=== PATIENT | female | born 1930 | race Caucasian/White ===

== ENCOUNTER 2017-04-18 11:10 | Emergency (ER) | payer MEDICARE, MEDICAID ==
[~2017-04-18] VITALS: Ht 152.4 cm; Wt 60.0 kg
[~2017-04-18 11:10] MED LIST: ACET-703 PO; AMLO5 PO; CINA30 PO; LORA-373 PO; METO-309 PO; NITR1SUB2 SL; PROT40TA PO; RAMI5CAP PO; RENATAB PO; SEVE800T PO
[2017-04-18 11:13] VITALS: BP 173/72; PULSE 66; RESP 16; TEMP 99.2; O2SAT 98
--- NOTE | 2017-04-18 11:19 | PD ---
HPI Chief Complaint: Skin Complaint Time Seen by Provider: 11:19 Travel History International Travel<30 days: No Contact w/Intl Traveler<30days: No History of Present Illness HPI 86-year-old female on dialysis presents to the emergency department status post skin tear 4 days ago to the right lateral augustine. Patient is here with her daughter stating that the area is becoming more tender and there is localized erythema but no warmth. There has been clear serous drainage. Has no fever, chills, or other symptoms. Patient had dialysis yesterday. Pain is 4 out of 10. Patient has multiple allergies please see list. PFSH Past Medical History Anemia: Yes Arthritis: Yes (osteo) Anxiety: Yes Cancer: Yes (SKIN CANCER RIGHT LOWER LEG, REMOVED) Cardiac Catheterization: Yes Cardiovascular Problems: Yes ([place], with triple bypass) High Cholesterol: Yes Chest Pain: Yes Congestive Heart Failure: Yes COPD: Yes Cerebrovascular Accident: No Coronary Artery Disease: Yes Diabetes: No Dialysis: Yes ( sat) Diverticulitis: Yes Endocrine: Yes Gastrointestinal Disorders: No Genitourinary: Yes Headaches: No Hypertension: Yes Implanted Vascular Access Dvce: No Musculoskeletal: No Neurologic: Yes Psychiatric: Yes Reproductive: No Respiratory: Yes Integumentary: Yes (NONSPECIFIC RASH) Migraines: No Renal Failure: Yes Seizures: No Sleep Apnea: Yes Thyroid Disease: Yes Menopausal: Yes Past Surgical History Abdominal Surgery: No Cardiac Surgery: Yes (triple bypass) Coronary Artery Bypass Graft: Yes (triple bypass) Ear Surgery: No Endocrine Surgery: No Eye Surgery: Yes (cataract removal, intraocular lense placement bilateral) Genitourinary Surgery: No Gynecologic Surgery: Yes (hysterectomy) Hysterectomy: Yes Neurologic Surgery: No Oral Surgery: No Thoracic Surgery: No Tonsillectomy: Yes Other Surgery: Yes (hysterectomy, fistula right upper arm for dialysis) Social History Alcohol Use: No Tobacco Use: No Substance Use: No Allergies-Medications (Allergen,Severity, Reaction): Coded Allergies: Sulfa (Sulfonamide Antibiotics) (Unverified Allergy, Unknown, 04/18/17) acetaminophen (Unverified Allergy, Unknown, 04/18/17) diatrizoate meglumine (Unverified Allergy, Unknown, 04/18/17) gadobenic acid (Unverified Allergy, Unknown, 04/18/17) gadodiamide (Unverified Allergy, Unknown, 04/18/17) gadoteridol (Unverified Allergy, Unknown, 04/18/17) iodixanol (Unverified Allergy, Unknown, 04/18/17) iohexol (Unverified Allergy, Unknown, 04/18/17) levofloxacin (Unverified Allergy, Unknown, 04/18/17) morphine (Unverified Allergy, Unknown, 04/18/17) oxycodone (Unverified Allergy, Unknown, 04/18/17) peanut (Unverified Allergy, Unknown, 04/18/17) penicillin G (Unverified Allergy, Unknown, 04/18/17) prochlorperazine (Unverified Allergy, Unknown, 04/18/17) shellfish derived (Unverified Allergy, Unknown, 04/18/17) vancomycin (Unverified Allergy, Unknown, 04/18/17) Reported Meds & Prescriptions Reported Meds & Active Scripts Active Mupirocin Topical (Mupirocin) 2 % Oint 1 Applic TOPICAL BID Clindamycin (Clindamycin HCl) 150 Mg Cap 150 Mg PO Q6H 10 Days Protonix (Pantoprazole Sodium) 40 Mg Tab 40 Mg PO DAILY Reported Lorazepam 0.5 Mg Tab 0.5 Mg PO TID Tylenol Extra Strength (Acetaminophen) 500 Mg Tab 1,000 Mg PO Q6HR PRN Nitroglycerin SL (Nitroglycerin) 0.3 Mg Subl 0.3 Mg SL DIRECTED PRN ONE TABLET UNDER THE TONGUE NEEDED FOR CHEST PAIN, MAY REPEAT EVERY FIVE MINUTES FOR A TOTAL OF 3 DOSES OR CALL 911 IF NO RELIEF Sensipar (Cinacalcet) 30 Mg Tab 30 Mg PO DAILY Renaplex-D (Multiple Vitamins W/ Minerals) 1 Tab Tab 1 Tab PO HS Renagel (Sevelamer HCl) 800 Mg Tab 800 Mg PO TID Ramipril 5 Mg Cap 5 Mg PO DAILY Norvasc (Amlodipine Besylate) 5 Mg Tab 10 Mg PO DAILY Lopressor (Metoprolol Tartrate) 50 Mg Tab 50 Mg PO BID PRN give if heart rate greater than 60 or higher Review of Systems Except as stated in HPI: all other systems reviewed are Neg General / Constitutional: No: Fever Eyes: No: Visual changes HENT: No: Headaches Cardiovascular: No: Chest Pain or Discomfort Respiratory: No: Shortness of Breath Gastrointestinal: No: Abdominal Pain Genitourinary: No: Dysuria Musculoskeletal: No: Pain Skin: No Rash Neurologic: No: Weakness Psychiatric: No: Depression Endocrine: No: Polydipsia Hematologic/Lymphatic: No: Easy Bruising Physical Exam Narrative GENERAL: Patient appears in no acute distress. SKIN: Warm and dry. Normal color. Normal turgor. She has a C-shaped skin tear to the lateral mid augustine localized tenderness. I believe the erythema is chronic rubor, as there is no warmth suggestive of active cellulitis. Serous drainage is noted and cultures are obtained. HEAD: Atraumatic. Normocephalic. EYES: Pupils equal and round. No scleral icterus. No injection or drainage. ENT: No nasal bleeding or discharge. Mucous membranes pink and moist. Pharynx is clear. NECK: Trachea midline. Supple and nontender. CARDIOVASCULAR: Regular rate and rhythm. RESPIRATORY: No accessory muscle use. Clear to auscultation. Breath sounds equal bilaterally. MUSCULOSKELETAL: Extremities without clubbing, cyanosis, or edema. No obvious deformities. NEUROLOGICAL: Awake and alert. No obvious cranial nerve deficits. Motor grossly within normal limits. Five out of 5 muscle strength in the arms and legs. Normal speech. PSYCHIATRIC: Appropriate mood and affect; insight and judgment normal. Data Data Last Documented VS Vital Signs Date Time Temp Pulse Resp B/P (MAP) Pulse Ox O2 Delivery O2 Flow Rate FiO2 04/18/17 11:13 99.2 66 16 173/72 (105) 98 Orders Orders Wound Culture And Gram Stain (04/18/17 11:37) [facility] Medical Decision Making Medical Screen Exam Complete: Yes Emergency Medical Condition: Yes Differential Diagnosis Skin tear. Renal failure on dialysis. Cellulitis Narrative Course Patient is medically stable at this time. Wound culture is obtained and sent for culture. Wound care is discussed with patient and daughter. Patient is given new percent ointment to be applied daily to the wound site with dressing change. Patient started on clindamycin 150 mg every 6 hours for 10 days. Wound should be cleansed and dressed daily as discussed. Patient follow-up with her primary care physician or return to emergency department as needed. Diagnosis Primary Impression: Skin tear of right lower leg without complication Qualified Codes: S81.811A - Laceration without foreign body, right lower leg, initial encounter Referrals: Primary Care Physician 1 week Patient Instructions: General Instructions, Skin Tear (ED) Additional Instructions: Wound culture is obtained and sent for culture. Wound care is discussed with patient and daughter. Patient is given new percent ointment to be applied daily to the wound site with dressing change. Patient started on clindamycin 150 mg every 6 hours for 10 days. Wound should be cleansed and dressed daily as discussed. Patient follow-up with her primary care physician or return to emergency department as needed. Med/Other Pt SpecificInfo: Prescription(s) given, Wound Care Scripts Mupirocin Topical (Mupirocin Topical) 2 % Oint 1 APPLIC TOPICAL BID for Mgmt Bacterial Infection, #22 GM 0 Refills Prov: Red Altman MD 04/18/17 Clindamycin (Clindamycin) 150 Mg Cap 150 MG PO Q6H for Infection for 10 Days, CAP 0 Refills Prov: Red Altman MD 04/18/17 Disposition: 01 DISCHARGE HOME Condition: Stable Catarino Gilman Apr 18, 2017 11:19
[2017-04-18] MEDS ORDERED: CLIN1CAP5 PO (11:33)
[2017-04-18] MEDS ORDERED: MUPI2OIN TOPICAL (11:33)
[2017-06-08] MEDS ORDERED: AMLO5TAB2 PO (10:07)
[2017-06-11] MEDS ORDERED: GENT0.1C TOPICAL (10:52)
== END 2017-04-18 12:13 | disposition home or self-care (01) ==
LOC: NEPD 11:10
DX: S81.811A Laceration without foreign body, right lower leg, initial encounter (principal); A49.01 Methicillin susceptible Staphylococcus aureus infection, unspecified site; B96.4 Proteus (mirabilis) (morganii) as the cause of diseases classified elsewhere; D64.9 Anemia, unspecified; I50.9 Heart failure, unspecified; J44.9 Chronic obstructive pulmonary disease, unspecified; I10 Essential (primary) hypertension; X58.XXXA Exposure to other specified factors, initial encounter; Z99.2 Dependence on renal dialysis
CPT/HCPCS: 86403; 87070; 87077; 87186; 87205; 99284

== ENCOUNTER 2017-04-21 17:36 | Emergency (ER) | payer MEDICARE, MEDICAID ==
[~2017-04-21] VITALS: Ht 160 cm; Wt 65.0 kg
[~2017-04-21 17:36] MED LIST changes: +CLIN1CAP5 PO; +MUPI2OIN TOPICAL
[2017-04-21 17:39] VITALS: BP 155/67; PULSE 70; RESP 15; TEMP 98.4; O2SAT 98
[2017-04-21] MEDS ORDERED: TETR250C PO (18:10)
--- NOTE | 2017-04-21 18:10 | PD ---
HPI . Positive wound culture Chief Complaint: Skin Problem Time Seen by Provider: 17:50 Travel History International Travel<30 days: No Contact w/Intl Traveler<30days: No History of Present Illness HPI This patient was seen here on April 18 because of a nonhealing skin tear on her right lateral lower leg. Patient culture was obtained and is growing MRSA. She was discharged on clindamycin and Bactroban but the MRSA is distant to clindamycin. She states that she received a phone call today instructed her to return to the emergency department for change in therapy. The patient reports continued pain in her right augustine dates that it's about the same now as it was at the time of her initial presentation. She is not running any fever. The patient admits that she has only changed her dressing once she was here on the . She was given a prescription for Bactroban to use twice a day. She has obviously not been doing that. PFSH Past Medical History Anemia: Yes Arthritis: Yes (osteo) Anxiety: Yes Cancer: Yes (SKIN CANCER RIGHT LOWER LEG, REMOVED) Cardiac Catheterization: Yes Cardiovascular Problems: Yes (TRIPLE BYPASS) High Cholesterol: Yes Chest Pain: Yes Congestive Heart Failure: Yes COPD: Yes Cerebrovascular Accident: No Coronary Artery Disease: Yes Diabetes: No Dialysis: Yes ( sun) Diverticulitis: Yes Endocrine: Yes Gastrointestinal Disorders: No Genitourinary: Yes Headaches: No Hypertension: Yes Implanted Vascular Access Dvce: No Musculoskeletal: No Neurologic: Yes Psychiatric: Yes Reproductive: No Respiratory: Yes Integumentary: Yes (NONSPECIFIC RASH) Migraines: No Renal Failure: Yes Seizures: No Sleep Apnea: Yes Thyroid Disease: Yes Menopausal: Yes Past Surgical History Abdominal Surgery: No Cardiac Surgery: Yes (triple bypass) Coronary Artery Bypass Graft: Yes (triple bypass) Ear Surgery: No Endocrine Surgery: No Eye Surgery: Yes (cataract removal, intraocular lense placement bilateral) Genitourinary Surgery: No Gynecologic Surgery: Yes (hysterectomy) Hysterectomy: Yes Neurologic Surgery: No Oral Surgery: No Thoracic Surgery: No Tonsillectomy: Yes Other Surgery: Yes (hysterectomy, fistula right upper arm for dialysis) Social History Alcohol Use: No Tobacco Use: No Substance Use: No Allergies-Medications (Allergen,Severity, Reaction): Coded Allergies: Sulfa (Sulfonamide Antibiotics) (Unverified Allergy, Unknown, 04/18/17) acetaminophen (Unverified Allergy, Unknown, 04/18/17) diatrizoate meglumine (Unverified Allergy, Unknown, 04/18/17) gadobenic acid (Unverified Allergy, Unknown, 04/18/17) gadodiamide (Unverified Allergy, Unknown, 04/18/17) gadoteridol (Unverified Allergy, Unknown, 04/18/17) iodixanol (Unverified Allergy, Unknown, 04/18/17) iohexol (Unverified Allergy, Unknown, 04/18/17) levofloxacin (Unverified Allergy, Unknown, 04/18/17) morphine (Unverified Allergy, Unknown, 04/18/17) oxycodone (Unverified Allergy, Unknown, 04/18/17) peanut (Unverified Allergy, Unknown, 04/18/17) penicillin G (Unverified Allergy, Unknown, 04/18/17) prochlorperazine (Unverified Allergy, Unknown, 04/18/17) shellfish derived (Unverified Allergy, Unknown, 04/18/17) vancomycin (Unverified Allergy, Unknown, 04/18/17) Reported Meds & Prescriptions Reported Meds & Active Scripts Active Mupirocin Topical (Mupirocin) 2 % Oint 1 Applic TOPICAL BID Clindamycin (Clindamycin HCl) 150 Mg Cap 150 Mg PO Q6H 10 Days Protonix (Pantoprazole Sodium) 40 Mg Tab 40 Mg PO DAILY Reported Lorazepam 0.5 Mg Tab 0.5 Mg PO TID Nitroglycerin SL (Nitroglycerin) 0.3 Mg Subl 0.3 Mg SL DIRECTED PRN ONE TABLET UNDER THE TONGUE NEEDED FOR CHEST PAIN, MAY REPEAT EVERY FIVE MINUTES FOR A TOTAL OF 3 DOSES OR CALL 911 IF NO RELIEF Sensipar (Cinacalcet) 30 Mg Tab 30 Mg PO DAILY Renagel (Sevelamer HCl) 800 Mg Tab 800 Mg PO TID Ramipril 5 Mg Cap 5 Mg PO DAILY Norvasc (Amlodipine Besylate) 5 Mg Tab 10 Mg PO DAILY Lopressor (Metoprolol Tartrate) 50 Mg Tab 50 Mg PO BID PRN give if heart rate greater than 60 or higher Review of Systems Except as stated in HPI: all other systems reviewed are Neg General / Constitutional: No: Fever, Chills Musculoskeletal: Positive: Pain Skin: Positive Change in Pigmentation Physical Exam Narrative GENERAL: Awake and alert and in no acute distress. SKIN: Warm and dry. There is an old appearing skin tear on the right lower extremity. It has some mild erythema and warmth of the right lower extremity. Minimal drainage from the wound. HEAD: Atraumatic. Normocephalic. EYES: Pupils equal and round. NECK: Trachea midline. CARDIOVASCULAR: Regular rate and rhythm. RESPIRATORY: No accessory muscle use. MUSCULOSKELETAL: No obvious deformities. No edema. NEUROLOGICAL: Awake and alert. No obvious cranial nerve deficits. Motor grossly within normal limits. Normal speech. PSYCHIATRIC: Appropriate mood and affect; insight and judgment normal. Data Data Last Documented VS Vital Signs Date Time Temp Pulse Resp B/P (MAP) Pulse Ox O2 Delivery O2 Flow Rate FiO2 04/21/17 17:51 16 04/21/17 17:39 98.4 70 155/67 (96) 98 Orders Orders Tetracycline (Sumycin) (04/21/17 18:15) [facility] Medical Decision Making Medical Screen Exam Complete: Yes Emergency Medical Condition: Yes Medical Record Reviewed: Yes (the wound culture shows MRSA which is sensitive to tetracycline.) Differential Diagnosis My differential diagnosis includes but is not limited to localized wound infection, cellulitis, abscess Narrative Course This is a renal failure patient who presents with cellulitis in her right lower extremity secondary to a skin tear. The wound culture was positive for MRSA which is not sensitive to clindamycin she is sensitive to tetracycline. I have queried up-to-date regarding the dose of tetracycline in a renal failure patient. It recommends decreasing the frequency of the antibiotics once a day. Diagnosis Primary Impression: Cellulitis Qualified Codes: L03.115 - Cellulitis of right lower limb Patient Instructions: Cellulitis (DC), General Instructions Additional Instructions: Clean the wound twice daily with soap and water. Apply a thin layer of Bactroban ointment after you wash it. Med/Other Pt SpecificInfo: Prescription(s) given Scripts Tetracycline (Tetracycline) 250 Mg Cap 500 MG PO DAILY for cellulitis for 10 Days, #10 CAP 0 Refills Prov: Yolande Wilhelm MD 04/21/17 Disposition: 01 DISCHARGE HOME Condition: Stable Yolande Wilhelm MD Apr 21, 2017 18:10
[2017-04-21] MEDS ORDERED: TETRACYCLINE HCL 500 MG CAP PO ONE (18:15)
[2017-04-21] MEDS ORDERED: TETRACYCLINE HCL 250 MG CAP PO ONE (18:15)
[2017-06-08] MEDS ORDERED: AMLO5TAB2 PO (10:07)
[2017-06-11] MEDS ORDERED: GENT0.1C TOPICAL (10:52)
== END 2017-04-21 18:32 | disposition home or self-care (01) ==
LOC: NEPE 17:36
DX: L03.115 Cellulitis of right lower limb (principal); B95.62 Methicillin resistant Staphylococcus aureus infection as the cause of diseases classified elsewhere
CPT/HCPCS: 99283

== ENCOUNTER 2017-05-15 18:38 | Emergency (ER) | payer MEDICARE, MEDICAID ==
[~2017-05-15] VITALS: Ht 160 cm; Wt 65.0 kg
[~2017-05-15 18:38] MED LIST changes: -ACET-703 PO; -RENATAB PO; +TETR250C PO
[2017-05-15 18:44] VITALS: BP 135/63; PULSE 71; RESP 24; TEMP 98; O2SAT 100
[2017-05-15] MEDS ORDERED: SODIUM CHLORIDE 0.9% FLUSH 10 ML FLUSH IVF PRN (19:00)
--- NOTE | 2017-05-15 19:04 | PD ---
HPI Chief Complaint: General Weakness Time Seen by Provider: 18:55 Travel History International Travel<30 days: No Contact w/Intl Traveler<30days: No Traveled to known affect area: No History of Present Illness HPI 86-year-old elderly female presents to the emergency department via EMS for evaluation of generalized weakness. The patient's past medical history of anemia, arthritis, anxiety, CABG in the past, CHF, CAD, diabetes, chronic renal failure, dialysis Sunday, , Sunday, hypertension, thyroid disease. Patient received her dialysis today. According to EMS, the dialysis center was not able take as much office he typically do. She apparently had some hypotension during the dialysis. She was going home with her daughter and was so weak that she was unable to get out of the car. The patient denies any syncope. She states she has a lump in her throat. No chest pain or shortness of breath. No abdominal pain. She states she was nauseated earlier, but no vomiting. Patient states that she feels weak all over. Patient states that she has felt weak after dialysis before, but this time is much worse. Return to EMS, her vitals have been stable on the way to the emergency department. She states she does not make any urine. Patient states she does not normally walk, but states this weakness is much worse. PFSH Past Medical History Anemia: Yes Arthritis: Yes (osteo) Anxiety: Yes Cancer: Yes (SKIN CANCER RIGHT LOWER LEG, REMOVED) Cardiac Catheterization: Yes Cardiovascular Problems: Yes (HTN) High Cholesterol: Yes Chest Pain: Yes Congestive Heart Failure: Yes COPD: Yes Cerebrovascular Accident: No Coronary Artery Disease: Yes Diabetes: No Dialysis: Yes (sun) Diverticulitis: Yes Endocrine: Yes Gastrointestinal Disorders: No Genitourinary: Yes Headaches: No Hypertension: Yes Implanted Vascular Access Dvce: No Musculoskeletal: No Neurologic: Yes Psychiatric: Yes Reproductive: No Respiratory: Yes Integumentary: Yes (NONSPECIFIC RASH) Migraines: No Renal Failure: Yes Seizures: No Sleep Apnea: Yes Thyroid Disease: Yes ?: Not Menopausal: Yes Past Surgical History Abdominal Surgery: No Cardiac Surgery: Yes (triple bypass) Coronary Artery Bypass Graft: Yes (triple bypass) Ear Surgery: No Endocrine Surgery: No Eye Surgery: Yes (cataract removal, intraocular lense placement bilateral) Genitourinary Surgery: No Gynecologic Surgery: Yes (hysterectomy) Hysterectomy: Yes Neurologic Surgery: No Oral Surgery: No Thoracic Surgery: No Tonsillectomy: Yes Other Surgery: Yes (hysterectomy, fistula right upper arm for dialysis) Social History Alcohol Use: No Tobacco Use: No Substance Use: No Allergies-Medications (Allergen,Severity, Reaction): Coded Allergies: Sulfa (Sulfonamide Antibiotics) (Unverified Allergy, Unknown, 05/15/17) acetaminophen (Unverified Allergy, Unknown, 05/15/17) diatrizoate meglumine (Unverified Allergy, Unknown, 05/15/17) gadobenic acid (Unverified Allergy, Unknown, 05/15/17) gadodiamide (Unverified Allergy, Unknown, 05/15/17) gadoteridol (Unverified Allergy, Unknown, 05/15/17) iodixanol (Unverified Allergy, Unknown, 05/15/17) iohexol (Unverified Allergy, Unknown, 05/15/17) levofloxacin (Unverified Allergy, Unknown, 05/15/17) morphine (Unverified Allergy, Unknown, 05/15/17) oxycodone (Unverified Allergy, Unknown, 05/15/17) peanut (Unverified Allergy, Unknown, 05/15/17) penicillin G (Unverified Allergy, Unknown, 05/15/17) prochlorperazine (Unverified Allergy, Unknown, 05/15/17) shellfish derived (Unverified Allergy, Unknown, 05/15/17) vancomycin (Unverified Allergy, Unknown, 05/15/17) Reported Meds & Prescriptions Reported Meds & Active Scripts Active Reported Ev-Eileen Rx (B-Complex W/ C & Folic Acid) 1 Tab 1 Tab PO DAILY Lorazepam 0.5 Mg Tab 0.5 Mg PO TID Nitroglycerin SL (Nitroglycerin) 0.3 Mg Subl 0.3 Mg SL DIRECTED PRN ONE TABLET UNDER THE TONGUE NEEDED FOR CHEST PAIN, MAY REPEAT EVERY FIVE MINUTES FOR A TOTAL OF 3 DOSES OR CALL 911 IF NO RELIEF Sensipar (Cinacalcet) 30 Mg Tab 30 Mg PO DAILY Renagel (Sevelamer HCl) 800 Mg Tab 800 Mg PO TID Ramipril 5 Mg Cap 5 Mg PO DAILY Norvasc (Amlodipine Besylate) 5 Mg Tab 10 Mg PO DAILY Review of Systems Except as stated in HPI: all other systems reviewed are Neg Physical Exam Narrative GENERAL: Well-nourished, well-developed female patient, afebrile. SKIN: Focused skin assessment warm/dry. Patient has skin tears noted to bilateral lower extremities. HEAD: Normocephalic. Atraumatic. EYES: No scleral icterus. No injection or drainage. NECK: Supple, trachea midline. No JVD or lymphadenopathy. CARDIOVASCULAR: Regular rate and rhythm without murmurs, gallops, or rubs. RESPIRATORY: Breath sounds equal bilaterally. No accessory muscle use. Lungs sounds are clear to auscultation. GASTROINTESTINAL: Abdomen soft, non-tender, nondistended. MUSCULOSKELETAL: No cyanosis, or edema. Bilateral upper lower extremity strength 4-5/5. BACK: Nontender without obvious deformity. No CVA tenderness. Data Data Last Documented VS Vital Signs Date Time Temp Pulse Resp B/P (MAP) Pulse Ox O2 Delivery O2 Flow Rate FiO2 05/15/17 21:25 16 100 Nasal Cannula 2.00 05/15/17 18:44 98.0 71 135/63 (87) Orders Orders Complete Blood Count With Diff (05/15/17 18:51) Comprehensive Metabolic Panel (05/15/17 18:51) Magnesium (Mg) (05/15/17 18:51) Ckmb (Isoenzyme) Profile (05/15/17 18:51) Troponin I (05/15/17 18:51) Act Partial Throm Time (Ptt) (05/15/17 18:51) Prothrombin Time / Inr (Pt) (05/15/17 18:51) Chest, Single Ap (05/15/17 18:51) Ecg Monitoring (05/15/17 18:51) Iv Access Insert/Monitor (05/15/17 18:51) Oximetry (05/15/17 18:51) Sodium Chloride 0.9% Flush (Ns Flush) (05/15/17 19:00) Labs Laboratory Tests Test 05/15/17 21:35 White Blood Count 7.0 TH/MM3 Red Blood Count 2.83 MIL/MM3 Hemoglobin 9.7 GM/DL Hematocrit 29.1 % Mean Corpuscular Volume 102.7 FL Mean Corpuscular Hemoglobin 34.2 PG Mean Corpuscular Hemoglobin Concent 33.3 % Red Cell Distribution Width 16.8 % Platelet Count 87 TH/MM3 Mean Platelet Volume 9.7 FL Neutrophils (%) (Auto) 77.9 % Lymphocytes (%) (Auto) 10.4 % Monocytes (%) (Auto) 10.1 % Eosinophils (%) (Auto) 1.2 % Basophils (%) (Auto) 0.4 % Neutrophils # (Auto) 5.5 TH/MM3 Lymphocytes # (Auto) 0.7 TH/MM3 Monocytes # (Auto) 0.7 TH/MM3 Eosinophils # (Auto) 0.1 TH/MM3 Basophils # (Auto) 0.0 TH/MM3 CBC Comment AUTO DIFF Differential Comment AUTO DIFF CONFIRMED Platelet Estimate LOW Platelet Morphology Comment NORMAL Ovalocytes 1+ Prothrombin Time 10.7 SEC Prothromb Time International Ratio 1.0 RATIO Activated Partial Thromboplast Time 24.4 SEC Blood Urea Nitrogen 43 MG/DL Creatinine 3.92 MG/DL Random Glucose 100 MG/DL Total Protein 6.0 GM/DL Albumin 3.2 GM/DL Calcium Level 9.0 MG/DL Magnesium Level 2.4 MG/DL Alkaline Phosphatase 79 U/L Aspartate Amino Transf (AST/SGOT) 38 U/L Alanine Aminotransferase (ALT/SGPT) 25 U/L Total Bilirubin 0.5 MG/DL Sodium Level 140 MEQ/L Potassium Level 4.6 MEQ/L Chloride Level 105 MEQ/L Carbon Dioxide Level 25.8 MEQ/L Anion Gap 9 MEQ/L Estimat Glomerular Filtration Rate 11 ML/MIN Total Creatine Kinase 59 U/L Troponin I 0.04 NG/ML MDM Medical Decision Making Medical Screen Exam Complete: Yes Emergency Medical Condition: Yes Medical Record Reviewed: Yes Interpretation(s) chest x-ray - CONCLUSION: Mild consolidation and small effusion of the left lung base. Differential Diagnosis Dehydration versus electrolyte abnormality versus ACS versus pneumonia Narrative Course 86-year-old female presents to the emergency department for evaluation generalized weakness since receiving dialysis. EKG, CBC, CMP, magnesium, CK, troponin, PTT, PT/INR, chest x-ray are ordered and pending. EKG shows SR, HR 61, no acute ST changes. CBC shows chronic anemia, hgb 9.7, hct 29.1. CMP shows BUN 43, creatinine of 3.92. Magnesium is 2.4. CK is 59. Troponin is 0.04. Coags are unremarkable. Chest x-ray shows mild consolidation and small effusion of the left lung base. Patient has no signs/ symptoms of pneumonia. Upon re-examination, patient states she feels much better and states she would like to go home. I discussed the case with my attending physician, Dr. Vivar,who agrees with plan and disposition. I will discharge patient with a prescription for azithromycin for possible pneumonia. Patient is instructed to follow up with he primary care physician. She is to return for any acute, worsening of symptoms. The patient was discharged in stable condition with instructions, including return instructions and follow up instructions. Diagnosis Primary Impression: Generalized weakness Additional Impression: ESRD (end stage renal disease) on dialysis Referrals: Primary Care Physician 2 days Patient Instructions: General Instructions, Weakness (ED) Additional Instructions: Take antibiotic as directed until gone. Follow-up with your primary care physician. Return to the emergency department for any acute worsening of symptoms. Med/Other Pt SpecificInfo: Prescription(s) given, No Change to Meds Scripts Azithromycin (Zithromax Z-Hakeem) 250 Mg Dspk 250 MG PO DIRECTED for Infection, #1 DSPK 0 Refills 500 MG (2 tabs) day 1, then 1 tab days 2-5. Prov: Balbina Beasley 05/15/17 Disposition: 01 DISCHARGE HOME Condition: Stable Balbina Beasley May 15, 2017 19:04
--- NOTE | 2017-05-15 19:21 | RADRPT ---
EXAM DATE/TIME: 05/15/2017 18:58 [facility] COMPARISON: No previous studies available for comparison. INDICATIONS : Syncope. General weakness. MEDICAL HISTORY : Hypertension. Chronic obstructive pulmonary disease. Congestive heart failure. SURGICAL HISTORY : CABG. ENCOUNTER: Initial ACUITY: 1 day PAIN SCORE: 0/10 LOCATION: Bilateral chest FINDINGS: Mild consolidation and very small pleural effusion seen at the left lung base. Right lung is clear. N o pneumothorax. Heart size stable, abnormal. Patient has had previous median sternotomy. CONCLUSION: Mild consolidation and small effusion of the left lung base. Rob Landon MD on May 15, 2017 at 19:19 Board Certified Radiologist. This report was verified electronically.
[2017-05-15 21:25] VITALS: RESP 16; O2SAT 100
[2017-05-15 22:12] LABS: AUTOMATED NEUTROPHIL # 5.5 TH/MM3 (1.8-7.7); BASOPHIL % 0.4 % (0.0-2.0); EOSINOPHIL # 0.1 TH/MM3 (0-0.4); EOSINOPHIL % 1.2 % (0.0-4.0); HEMATOCRIT 29.1 % (35.0-46.0); LYMPH % 10.4 % (9.0-44.0); LYMPHOCYTE # 0.7 TH/MM3 (1.0-4.8); MEAN CELL VOLUME 102.7 FL (80.0-100.0); MEAN CORPUSCULAR HEMOGLOBIN 34.2 PG (27.0-34.0); MEAN CORPUSCULAR HGB CONC 33.3 % (32.0-36.0); MONO % 10.1 % (0.0-8.0); NEUT % 77.9 % (16.0-70.0); PLATELET COUNT 87 TH/MM3 (150-450); RED BLOOD COUNT 2.83 MIL/MM3 (4.00-5.30); RED CELL DISTRIBUTION WIDTH 16.8 % (11.6-17.2)
[2017-05-15 22:22] LABS: APTT (PATIENT) 24.4 SEC (24.3-30.1); HEMO FLAGS AUTO DIFF; PROTHROMBIN TIME - PATIENT 10.7 SEC (9.8-11.6)
[2017-05-15] MEDS ORDERED: RENATAB6 PO (22:25)
[2017-05-15 22:33] LABS: ALKALINE PHOSPHATASE 79 U/L (45-117); ALT (GPT) 25 U/L (10-53); ANION GAP 9 MEQ/L (5-15); AST (GOT) 38 U/L (15-37); BICARBONATE 25.8 MEQ/L (21.0-32.0); BLOOD UREA NITROGEN 43 MG/DL (7-18); CHLORIDE 105 MEQ/L (98-107); GLOMERULAR FILTRATION RATE 11 ML/MIN (>89); MAGNESIUM 2.4 MG/DL (1.5-2.5); POTASSIUM 4.6 MEQ/L (3.5-5.1); SODIUM (NA) 140 MEQ/L (136-145); TOTAL BILIRUBIN ADULT 0.5 MG/DL (0.2-1.0)
[2017-05-15 22:35] LABS: CREATINE KINASE 59 U/L (26-192)
[2017-05-15 23:04] LABS: OVALOCYTES 1+ (NORMAL); PLATELET ESTIMATE SMEAR LOW (NORMAL); PLATELET MORPHOLOGY NORMAL (NORMAL)
[2017-05-15 23:05] LABS: SCAN/DIFF AUTO DIFF CONFIRMED
[2017-05-15] MEDS ORDERED: ZITHTAB PO (23:08)
[2017-05-16 01:34] VITALS: BP 137/63
--- NOTE | 2017-05-16 15:02 | EKG ---
Date Performed: 05/15/2017 Time Performed: 21:24:23 PTAGE: 86 years EKG: Sinus rhythm MINIMAL VOLTAGE CRITERIA FOR LVH, CONSIDER NORMAL VARIANT ST DEVIATION AND MODERATE T-WAVE ABNORMALI TY ABNORMAL ECG PREVIOUS TRACING : 07/29/2016 12.19 Compared to prior tracing no significant change DOCTOR: Live Brito Interpretating Date/Time 05/16/2017 15:01:12
[2017-06-08] MEDS ORDERED: AMLO5TAB2 PO (10:07)
[2017-06-11] MEDS ORDERED: GENT0.1C TOPICAL (10:52)
== END 2017-05-16 01:37 | disposition home or self-care (01) ==
LOC: NEPC 18:38
DX: I13.2 Hypertensive heart and chronic kidney disease with heart failure and with stage 5 chronic kidney disease, or end stage renal disease (principal); R53.1 Weakness; N18.6 End stage renal disease; I50.9 Heart failure, unspecified; Z99.2 Dependence on renal dialysis; I25.10 Atherosclerotic heart disease of native coronary artery without angina pectoris; Z95.1 Presence of aortocoronary bypass graft; R94.31 Abnormal electrocardiogram [ECG] [EKG]
CPT/HCPCS: 71010; 80053; 82550; 83735; 84484; 85025; 85610; 85730; 93005

== ENCOUNTER 2017-07-21 15:42 | Emergency (ER) | payer MEDICARE, MEDICAID ==
[~2017-07-21] VITALS: Ht 160 cm; Wt 61.5 kg
[~2017-07-21 15:42] MED LIST changes: -AMLO5 PO; +AMLO5TAB2 PO; -CLIN1CAP5 PO; +GENT0.1C TOPICAL; -LORA-373 PO; +LORA0.5T PO; -METO-309 PO; -MUPI2OIN TOPICAL; -PROT40TA PO; +RENATAB6 PO; +SEVE800 PO; -SEVE800T PO; -TETR250C PO
[2017-07-21 15:43] VITALS: BP 176/75; PULSE 68; RESP 16; TEMP 97.7; O2SAT 100
--- NOTE | 2017-07-21 16:24 | PD ---
HPI Chief Complaint: ENT Complaint Time Seen by Provider: 16:24 Travel History International Travel<30 days: No Contact w/Intl Traveler<30days: No Traveled to known affect area: No History of Present Illness HPI 86-year-old female was brought to the emergency room by her daughters after she started feeling headache and neck pain after her dialysis. Patient has end- stage kidney disease and was getting dialyzed today. The dialysis finished when this happened. Wanted to send her by ambulance but patient insisted that her daughters will bring her in. Currently she looks very anxious and says her head and neck still hurts. There is a fullness kind of a sensation. All the patient was so anxious she could not describe her discomfort very well. That she has never had this can of feeling after the dialysis before. She was slightly hypertensive when she first arrived. [facility] Past Medical History Narrative Medical List of her past medical, surgical, social and family history is reviewed from the nursing note. Anemia: Yes Arthritis: Yes (osteo) Anxiety: Yes Cancer: Yes (SKIN CANCER RIGHT LOWER LEG, REMOVED) Cardiac Catheterization: Yes Cardiovascular Problems: Yes High Cholesterol: Yes Chest Pain: Yes Congestive Heart Failure: Yes COPD: Yes Cerebrovascular Accident: No Coronary Artery Disease: Yes Diabetes: No Dialysis: Yes (sun) Diverticulitis: Yes Endocrine: Yes Gastrointestinal Disorders: No Genitourinary: Yes Headaches: No Hypertension: Yes Implanted Vascular Access Dvce: No Musculoskeletal: No Neurologic: Yes Psychiatric: Yes Reproductive: No Respiratory: Yes Integumentary: Yes (NONSPECIFIC RASH) Migraines: No Renal Failure: Yes Seizures: No Sleep Apnea: Yes Thyroid Disease: Yes Menopausal: Yes Past Surgical History Abdominal Surgery: No Cardiac Surgery: Yes (triple bypass) Coronary Artery Bypass Graft: Yes (triple bypass) Ear Surgery: No Endocrine Surgery: No Eye Surgery: Yes (cataract removal, intraocular lense placement bilateral) Genitourinary Surgery: No Gynecologic Surgery: Yes (hysterectomy) Hysterectomy: Yes Neurologic Surgery: No Oral Surgery: No Thoracic Surgery: No Tonsillectomy: Yes Other Surgery: Yes (hysterectomy, fistula right upper arm for dialysis) Social History Alcohol Use: No Tobacco Use: No Substance Use: No Allergies-Medications (Allergen,Severity, Reaction): Coded Allergies: Sulfa (Sulfonamide Antibiotics) (Unverified Allergy, Unknown, 07/21/17) acetaminophen (Unverified Allergy, Unknown, 07/21/17) diatrizoate meglumine (Unverified Allergy, Unknown, 07/21/17) gadobenic acid (Unverified Allergy, Unknown, 07/21/17) gadodiamide (Unverified Allergy, Unknown, 07/21/17) gadoteridol (Unverified Allergy, Unknown, 07/21/17) iodixanol (Unverified Allergy, Unknown, 07/21/17) iohexol (Unverified Allergy, Unknown, 07/21/17) levofloxacin (Unverified Allergy, Unknown, 07/21/17) morphine (Unverified Allergy, Unknown, 07/21/17) oxycodone (Unverified Allergy, Unknown, 07/21/17) peanut (Unverified Allergy, Unknown, 07/21/17) penicillin G (Unverified Allergy, Unknown, 07/21/17) prochlorperazine (Unverified Allergy, Unknown, 07/21/17) shellfish derived (Unverified Allergy, Unknown, 07/21/17) vancomycin (Unverified Allergy, Unknown, 07/21/17) Comments List of her allergies reviewed from the nursing note. Reported Meds & Prescriptions Reported Meds & Active Scripts Active Gentamicin Topical 0.1% Cream 1 Applic TOPICAL BID Apply to affected area(s) Reported Amlodipine (Amlodipine Besylate) 5 Mg Tab 5 Mg PO DAILY Ev-Eileen Rx (B-Complex W/ C & Folic Acid) 1 Tab 1 Tab PO DAILY Lorazepam 0.5 Mg Tab 0.5 Mg PO TID Nitroglycerin SL (Nitroglycerin) 0.3 Mg Subl 0.3 Mg SL DIRECTED PRN ONE TABLET UNDER THE TONGUE NEEDED FOR CHEST PAIN, MAY REPEAT EVERY FIVE MINUTES FOR A TOTAL OF 3 DOSES OR CALL 911 IF NO RELIEF Sensipar (Cinacalcet) 30 Mg Tab 30 Mg PO DAILY Renagel (Sevelamer HCl) 800 Mg Tab 800 Mg PO TID Ramipril 5 Mg Cap 5 Mg PO DAILY Narrative Medication List of her home medications reviewed from the nursing note. Review of Systems Except as stated in HPI: all other systems reviewed are Neg HENT: Positive: Headaches, Neck Pain Physical Exam Narrative GENERAL: Awake, alert, very anxious, mild distress SKIN: Focused skin assessment warm/dry. Multiple hyperpigmentation of her skin generalized. Multiple varicose veins. HEAD: Atraumatic. Normocephalic. EYES: Pupils equal and round. No scleral icterus. No injection or drainage. ENT: No nasal bleeding or discharge. Mucous membranes pink and moist. NECK: Trachea midline. No JVD. CARDIOVASCULAR: Regular rate and rhythm. No murmur appreciated. RESPIRATORY: No accessory muscle use. Clear to auscultation. Breath sounds equal bilaterally. GASTROINTESTINAL: Abdomen soft, non-tender, nondistended. Hepatic and splenic margins not palpable. MUSCULOSKELETAL: No obvious deformities. No clubbing. No cyanosis. No edema. NEUROLOGICAL: Awake and alert. No obvious cranial nerve deficits. Motor grossly within normal limits. Normal speech. PSYCHIATRIC: Appropriate mood and affect; insight and judgment normal. Data Data Last Documented VS Orders Orders Complete Blood Count With Diff (07/21/17 16:31) Basic Metabolic Panel (Bmp) (07/21/17 16:31) Ct Brain W/O Iv Contrast(Rout) (07/21/17 16:31) Ecg Monitoring (07/21/17 16:31) Iv Access Insert/Monitor (07/21/17 16:31) Oximetry (07/21/17 16:31) Sodium Chloride 0.9% Flush (Ns Flush) (07/21/17 16:45) Troponin I (07/21/17 17:55) Ed Discharge Order (07/21/17 18:25) Electrocardiogram (07/21/17 ) Labs Laboratory Tests Test 07/21/17 16:35 07/21/17 16:38 White Blood Count 4.9 TH/MM3 Red Blood Count 3.55 MIL/MM3 Hemoglobin 12.3 GM/DL Hematocrit 37.9 % Mean Corpuscular Volume 106.9 FL Mean Corpuscular Hemoglobin 34.7 PG Mean Corpuscular Hemoglobin Concent 32.5 % Red Cell Distribution Width 20.3 % Platelet Count 139 TH/MM3 Mean Platelet Volume 9.4 FL Neutrophils (%) (Auto) 54.0 % Lymphocytes (%) (Auto) 30.0 % Monocytes (%) (Auto) 11.4 % Eosinophils (%) (Auto) 3.7 % Basophils (%) (Auto) 0.9 % Neutrophils # (Auto) 2.7 TH/MM3 Lymphocytes # (Auto) 1.5 TH/MM3 Monocytes # (Auto) 0.6 TH/MM3 Eosinophils # (Auto) 0.2 TH/MM3 Basophils # (Auto) 0.0 TH/MM3 CBC Comment DIFF FINAL Differential Comment Blood Urea Nitrogen 31 MG/DL Creatinine 3.65 MG/DL Random Glucose 94 MG/DL Calcium Level 8.5 MG/DL Sodium Level 135 MEQ/L Potassium Level 4.1 MEQ/L Chloride Level 102 MEQ/L Carbon Dioxide Level 24.6 MEQ/L Anion Gap 8 MEQ/L Estimat Glomerular Filtration Rate 12 ML/MIN Troponin I 0.02 NG/ML MDM Medical Decision Making Medical Screen Exam Complete: Yes Emergency Medical Condition: Yes Medical Record Reviewed: Yes Interpretation(s) Twelve-lead EKG is reviewed by me. Normal sinus rhythm, left axis deviation, poor R-wave progression, nonspecific ST-T wave changes. Heart rate of 64 bpm. Differential Diagnosis Anxiety, ACS, electrolyte abnormality Narrative Course 5:54 PM patient was given Tylenol for the headache. Creatinine is elevated which is consistent with her end-stage renal disease. Awaiting for the head CT. Awaiting for troponin. 6:[address] head is negative. I went and reassessed her and she says she feels completely normal. She still not sure how to describe the feeling that she got but I'm comfortable discharging her home at this point. Patient is comfortable going home. I have told her that if something worsens she needs to come back and she understands. Procedures EKG Prior to Arrival: No Diagnosis Primary Impression: Headache Qualified Codes: R51 - Headache Additional Impressions: End stage renal disease Dependent on hemodialysis Referrals: Primary Care Physician Additional Instructions: Please return to the ER if the condition worsens or any other new concerns. Otherwise follow-up with her primary care physician. Med/Other Pt SpecificInfo: No Change to Meds Disposition: 01 DISCHARGE HOME Condition: Stable Pierre Aleman MD Jul 21, 2017 16:24
[2017-07-21 16:27] VITALS: BP 189/68; PULSE 95; RESP 18; O2SAT 97
[2017-07-21] MEDS ORDERED: SODIUM CHLORIDE 0.9% FLUSH 10 ML FLUSH IVF PRN (16:45)
[2017-07-21 16:50] LABS: AUTOMATED NEUTROPHIL # 2.7 TH/MM3 (1.8-7.7); BASOPHIL % 0.9 % (0.0-2.0); EOSINOPHIL # 0.2 TH/MM3 (0-0.4); EOSINOPHIL % 3.7 % (0.0-4.0); HEMATOCRIT 37.9 % (35.0-46.0); HEMO FLAGS DIFF FINAL; LYMPHOCYTE # 1.5 TH/MM3 (1.0-4.8); MEAN CELL VOLUME 106.9 FL (80.0-100.0); MEAN CORPUSCULAR HEMOGLOBIN 34.7 PG (27.0-34.0); MEAN CORPUSCULAR HGB CONC 32.5 % (32.0-36.0); MONO % 11.4 % (0.0-8.0); PLATELET COUNT 139 TH/MM3 (150-450); RED BLOOD COUNT 3.55 MIL/MM3 (4.00-5.30); RED CELL DISTRIBUTION WIDTH 20.3 % (11.6-17.2); WHITE BLOOD COUNT 4.9 TH/MM3 (4.0-11.0)
[2017-07-21 17:17] LABS: BICARBONATE 24.6 MEQ/L (21.0-32.0); POTASSIUM 4.1 MEQ/L (3.5-5.1)
[2017-07-21 17:42] VITALS: BP 114/56; PULSE 64; RESP 16; O2SAT 100
--- NOTE | 2017-07-21 18:15 | RADRPT ---
EXAM DATE/TIME: 07/21/2017 18:07 [place] COMPARISON: No previous studies available for comparison. INDICATIONS : Patient felt like her throat was closing during dialysis. RADIATION DOSE: 48.70 CTDIvol (mGy) MEDICAL HISTORY : Cardiovascular disease. Congestive heart failure. Hypertension. SURGICAL HISTORY : Hysterectomy. CABG ENCOUNTER: Initial ACUITY: 1 day PAIN SCALE: 0/10 LOCATION: cranial TECHNIQUE: Multiple contiguous axial images were obtained of the head. Using automated exposure control and adj ustment of the mA and/or kV according to patient size, radiation dose was kept as low as reasonably a chievable to obtain optimal diagnostic quality images. DICOM format image data is available electro nically for review and comparison. FINDINGS: CEREBRUM: Moderate diffuse cerebral volume loss. The ventricles are normal for degree of atrophy. No evidence of midline shift, mass lesion, hemorrhage or acute infarction. No extra-axial fluid collections are seen. POSTERIOR FOSSA: The cerebellum and brainstem are intact. The 4th ventricle is midline. The cerebellopontine angle i s unremarkable. EXTRACRANIAL: The visualized portion of the orbits is intact. SKULL: The calvaria is intact. No evidence of skull fracture. CONCLUSION: 1. Senescent changes without acute intracranial abnormality. Angus Jacobo MD on July 21, 2017 at 18:12 Board Certified Radiologist. This report was verified electronically.
--- NOTE | 2017-07-22 22:36 | EKG ---
Date Performed: 07/21/2017 Time Performed: 18:35:27 PTAGE: 86 years EKG: Sinus rhythm LEFT VENTRICULAR HYPERTROPHY AND ST-T CHANGE ABNORMAL ECG INTERPRETATION BASED ON A DEFAULT AGE OF 2 0 YEARS PREVIOUS TRACING : 05/15/2017 21.24 Compared to prior tracing no significant change DOCTOR: Edson Zepeda Interpretating Date/Time 07/22/2017 22:35:51
== END 2017-07-21 18:47 | disposition home or self-care (01) ==
LOC: NEPE 15:42
DX: R51 Headache (principal); N18.6 End stage renal disease; M54.2 Cervicalgia; R94.31 Abnormal electrocardiogram [ECG] [EKG]; I12.0 Hypertensive chronic kidney disease with stage 5 chronic kidney disease or end stage renal disease; E07.9 Disorder of thyroid, unspecified; G47.30 Sleep apnea, unspecified; E78.00 Pure hypercholesterolemia, unspecified; Z99.2 Dependence on renal dialysis; Z86.2 Personal history of diseases of the blood and blood-forming organs and certain disorders involving the immune mechanism; Z87.39 Personal history of other diseases of the musculoskeletal system and connective tissue; Z86.59 Personal history of other mental and behavioral disorders; Z86.79 Personal history of other diseases of the circulatory system; Z87.09 Personal history of other diseases of the respiratory system; Z87.19 Personal history of other diseases of the digestive system; Z86.69 Personal history of other diseases of the nervous system and sense organs
CPT/HCPCS: 70450; 80048; 84484; 85025; 93005; 99285